=== PATIENT | female | born 1960 | race African-American/Black ===

== ENCOUNTER 2016-11-15 16:45 | Emergency (ER) | payer OTHER, MEDICARE ==
[2016-11-15 16:45] VITALS: BP 0/0
--- NOTE | 2016-11-15 17:05 | ED CRITICAL CARE ---
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 yes HPI: Patient presents in cardiac arrest. Patient had just received dialysis. Past History Travel History Traveled to [place] past 21 day No Medical History Any Pertinent Medical History? see below for history Pneumonia Vaccine: 04/23/08 Influenza Vaccine: 04/13/11 Surgical History Surgical History: non-contributory Psychosocial History Who do you live with Family Services at Home None What is your primary language [place] Family History Hx Contributory? No Review of Systems Review of Systems Constitutional: Reports: no symptoms. Eyes: Reports: no symptoms. Ears, Nose, Throat, Mouth: Reports: no symptoms. Respiratory: Reports: no symptoms. Cardiovascular: Reports: no symptoms. Gastrointestinal/Abdominal: Reports: no symptoms. Genitourinary: Reports: no symptoms. Musculoskeletal: Reports: no symptoms. Skin: Reports: no symptoms. Neurological/Psychological: Reports: no symptoms. All Other Systems: Reviewed and Negative Physical Exam Physical Exam General Appearance: SEE BELOW Comments: Gen.: Well-nourished, well-developed, unresponsive, endotracheal intubation Head: Normocephalic, atraumatic. Eyes: Pupils fixed and dilated with clouded corneas Ears: Normal inspection bilaterally Nose: Normal inspection Throat/mouth : Endotracheal tube in place Neck: No apparent trauma Heart: No heart tones Lungs: Clear to auscultation bilaterally with normal air entry with manual ventilations Chest: Good chest rise Abdomen: nondistended Extremities: No spontaneous movements, femoral pulses palpable with chest compressions only Neurologic: Unable to assess Skin: warm and dry Psychiatric: Unable to assess Core Measures ACS in differential dx? Yes CVA/TIA Diagnosis: No Severe Sepsis Present: No Septic Shock Present: No Progress Differential Diagnoses I considered the following diagnoses in my evaluation of the patient: Hypotension, cardiac disease, pericardial tamponade Plan of Care: Orders Procedure Date/time Status EKG 11/15 1645 Active Initial ED EKG: none Comments: 11/15/2016 5:05:02 PM despite aggressive resuscitation with CPR, IV epinephrine and an amp of calcium gluconate, the patient remained asystolic in the absence of CPR. Patient was pronounced at 16:59. I updated patient on Leona's passing. The patient's son states that she had complained of feeling a low blood pressure during dialysis this afternoon. Departure Departure Disposition: Condition: Stable Clinical Impression Primary Impression: Hypotension of hemodialysis Secondary Impressions: Cardiac arrest Referrals: ALEXANDRIA FORTE MD (PCP/Family) Departure Forms: General Discharge Information Critical Care Note Critical Care Note Critical Care Time: non-applicable
== END 2016-11-15 16:59 | disposition expired ==
LOC: ERH 16:45
DX: I95.3 Hypotension of hemodialysis (principal); I46.9 Cardiac arrest, cause unspecified
CPT/HCPCS: 1387; 94799; 99291; J0610